=== PATIENT | male | born 1970 | race Two or more races ===

== ENCOUNTER 2022-02-16 12:20 | Outpatient (REF) | payer MEDICAID, SELFPAY ==
--- NOTE | ~2022-02-16 | XR_ITS ---
EXAMINATION: XR SHOULDER, RIGHT CLINICAL INFORMATION: Right shoulder pain. COMPARISON: None TECHNIQUE: AP external rotation, Grashey, scapular Y, and axillary views of the right shoulder. FINDINGS: There is loss of glenohumeral joint space with periarticular spurring and subchondral d cystic changes consistent with DJD. There is small calcification along the insertion of rotator cuff likely rotator cuff tendinitis. The soft tissues are normal. XR/XR shoulder RT min 2V IMPRESSION: Degenerative arthritic changes right shoulder joint. No visible acute fracture or dislocation seen. Likely calcific rotator cuff tendinitis. Consider MRI right shoulder for further evaluation.
== END 2022-02-16 12:21 | disposition home or self-care (01) ==
LOC: HO.XRAY 12:20
PROVIDERS: PCP Student in an Organized Health Care Education/Training Program; Visit Provider Student in an Organized Health Care Education/Training Program
DX: M25.511 Pain in right shoulder (principal)
CPT/HCPCS: 73030

== ENCOUNTER 2022-10-30 12:31 | Outpatient (REF) | payer MEDICAID, SELFPAY ==
[2022-10-30 13:34] LABS: Alanine Aminotransferase 29 U/L (0-40); Albumin Level 4.7 g/dL (3.5-5.0); Alkaline Phosphatase 70 U/L (39-117); Bilirubin Direct 0.2 mg/dL (0.0-0.5); Bilirubin Total 0.3 mg/dL (0.0-1.0); Lipase 19 U/L (8-78)
[2022-10-30 13:45] LABS: TSH reflex Free T4 4.18 uIU/mL (0.32-4.0)
[2022-10-30 13:57] LABS: HBS Num1 5.74 mIU/mL (0-7.99); HBc Num1 7.82 S/CO (0.00-0.79); HBsAGNum1 0.26 S/CO (0.00-0.99); Hepatitis B Surface Antigen Negative (Negative); ~HepC Num1 12.04 S/CO (0.00-0.79); ~Hepatitis B Surface Antibody NONREACTIVE (Nonreactive); ~Hepatitis C Antibody Reactive (Nonreactive)
[2022-10-30 14:38] LABS: Aspartate Amino Transferase 20 U/L (5-37); Free T4 (Free Thyroxine) 1.04 ng/dL (0.71-1.85)
[2022-10-30 15:38] LABS: Vitamin B12 401 pg/mL (200-900)
[2022-10-30 15:39] LABS: Folate 14.9 ng/mL (> or = 4.0)
[2022-10-31 09:23] LABS: Hepatitis A Antibody IgM 0.13 Index (0-0.79); ~Hepatitis A Antibody IgM Nonreactive (Nonreactive)
[2022-10-31 09:56] LABS: HBc Num3 8.33 S/CO
[2022-10-31 09:57] LABS: Hepatitis B Core Antibody Reactive (Nonreactive)
[2022-11-01 13:58] LABS: Transglutaminase Ab IgG <1.0 U/mL; Transglutaminase IgA <1.0 U/mL
[2022-11-02 08:58] LABS: Hepatitis B Core Antibody IgM NON-REACTIVE (NON-REACTIVE)
[2022-11-02 14:49] LABS: HCV Log PCR <1.18 NOT DETECTED Log IU/mL (NOT DETECTED); HepC Viral Load <15 NOT DETECTED IU/mL (NOT DETECTED)
[2022-11-05 14:33] LABS: Vitamin D 25-OH, D2 <4 ng/mL; Vitamin D 25-OH, D3 31 ng/mL; Vitamin D 25-OH, Total 31 ng/mL (30-100)
== END 2022-10-30 12:32 | disposition home or self-care (01) ==
LOC: HO.LAB 12:31
PROVIDERS: PCP Student in an Organized Health Care Education/Training Program; Visit Provider Nurse Practitioner Family
DX: R10.9 Unspecified abdominal pain (principal); K59.00 Constipation, unspecified; R19.7 Diarrhea, unspecified; R79.89 Other specified abnormal findings of blood chemistry; E55.9 Vitamin D deficiency, unspecified; Z86.19 Personal history of other infectious and parasitic diseases
CPT/HCPCS: 36415; 80076; 82306; 82607; 82746; 83690; 84439; 84443; 86364; 86704; 86705; 86706; 86709; 86803; 87340; 87522; 99212

== ENCOUNTER 2022-11-12 12:12 | Outpatient (REF) | payer MEDICAID, SELFPAY | END 2022-11-12 12:13 | disposition home or self-care (01) | LOC: HO.LNP 12:12 | PROVIDERS: Visit Provider Nurse Practitioner Family | DX: Z13.89 Encounter for screening for other disorder (principal) ==

== ENCOUNTER → 2023-04-19 15:24 | Outpatient (BNVA) | payer MEDICAID, SELFPAY | PROVIDERS: PCP Student in an Organized Health Care Education/Training Program; Visit Provider Nurse Practitioner Family | DX: K58.1 Irritable bowel syndrome with constipation (principal); R14.0 Abdominal distension (gaseous) | CPT/HCPCS: 99212 ==

== ENCOUNTER 2023-06-28 06:01 | Outpatient (REF) | payer MEDICAID, SELFPAY ==
--- NOTE | ~2023-06-28 | XR_ITS ---
EXAMINATION: XR SHOULDER, RIGHT CLINICAL INFORMATION: Pain. COMPARISON: Radiographs dated 02/16/2022. TECHNIQUE: AP external rotation, Grashey, scapular Y, and axillary views of the right shoulder. FINDINGS: Bony alignment and mineralization are normal. The glenohumeral joint is intact. There is moderate osteoarthritic change of the glenohumeral joint, with joint space narrowing and peripheral osteophyte formation. The acromioclavicular and coracoid clavicular intervals are normal. No fracture or dislocation is seen. There is mild narrowing of the rotator cuff interval, and there is mild cortical irregularity of the greater tuberosity of the proximal right humerus. There is no focal soft tissue calcification or foreign body. No right pneumothorax is seen. XR/XR shoulder RT min 2V IMPRESSION: 1. There is moderate osteoarthritic change of the right glenohumeral joint. 2. There are findings consistent with right rotator cuff impingement, without sophy calcific tendinitis noted.
== END 2023-06-28 06:02 | disposition home or self-care (01) ==
LOC: HO.HOSX 06:01
PROVIDERS: Visit Provider Physician Assistant
DX: M19.011 Primary osteoarthritis, right shoulder (principal)
CPT/HCPCS: 73030; 99203

== ENCOUNTER 2023-06-28 10:44 | Outpatient (AMB) | payer MEDICAID, SELFPAY ==
--- NOTE | 2023-06-28 11:03 | A.OFFVIS_ITS ---
Intake Vital Signs 06/28/23 11:06 Height 5 ft 7 in Weight 176 lb BMI 27.6 Handedness Right Intake Visit Reasons: New PT-Right shoulder pain Intake Note: Bob is a 52 year old right hand dominant male who presents today as a new patient for a evaluation for right shoulder pain. Hx of 2 injuries to his shoulder about 4-6 years ago. Hx of injections with mild relief. Hx of PT with mild pain. Patient reports ongoing pain for many years and it has gotten worse. He states that his ROM is limited. Allergies azithromycin Allergy (Unknown, Verified 06/28/23 11:06) Unknown morphine [MORPHINE] Allergy (Unknown, Verified 06/28/23 11:06) DIFFICULTY BREATHING HPI New PT-Right shoulder pain HPI Details 52-year-old right hand dominant male who presents in the office today, as a new patient, for an evaluation of right shoulder pain. The patient reports he has 2 prior injuries to his right shoulder about 4-6 years ago. He states he pain has been chronic since the injury and has increased with time. He claims his ROM is limited. Patient has a history of cortisone injections with mild relief. An ultrasound was not used. Patient has a history of physical therapy which was for a different injury with mild pain. [facility] Surgical History Hx of hernia repair Family History Mother Diabetes HTN (hypertension) Brother Cancer of blood vessel Social History (Updated 06/28/23 @ 11:06 by Jordana Avina) Household Members: Other Alcohol intake: former Patient Tobacco Use Status: Current everyday Tobacco user Current occupational status: disabled Current occupation: right hand dominant Review of Systems Const All systems reviewed & are unremarkable except as noted in HPI and below Physical Exam Vital Signs: BMI result Body Mass Index 27.6 Const General: cooperative and no acute distress Orientation/consciousness: patient oriented x3 Resp Effort & Inspection: normal respiratory effort and able to speak in complete sentences Cardio Peripheral pulses: Peripheral pulses 2+ throughout Skin General skin exam: no rashes or lesions noted Neuro General: patient oriented x3 Extrem Other: Right shoulder: Forward flexion and abduction to 90 degrees. Able to reach T12. Pain with cross-body reach. Unable to adequately assess empty can and drop arm due to ROM limitations. NVI. Assessment & Plan Assessment & Plan (1) Osteoarthritis of right glenohumeral joint: Code(s): M19.011 - Primary osteoarthritis, right shoulder Plan Mr. Acosta is a 52-year-old right hand dominant male who presents in the office today, as a new patient, for an evaluation of right shoulder pain. The patient reports he has 2 prior injuries to his right shoulder about 4-6 years ago. He states he pain has been chronic since the injury and has increased with time. He claims his ROM is limited. Patient has a history of cortisone injections with mild relief. An ultrasound was not used. Patient has a history of physical therapy which was for a different injury with mild pain. I discussed the role of a cortisone injection under ultrasound guidance, which a referral was placed today. I will place a prescription for a specialty pharmacy topical cream. I also discussed with the patient in the future he might be a candidate for a right total shoulder arthroplasty. I will also place a referral for formal physical therapy to work on ROM and strengthening of the right shoulder. Follow up will be PRN, or sooner if needed. X-rays of the right shoulder which were obtained while in the office today and were reviewed by me, Clare Peterson PA-C, revealed no evidence of acute fractures or dislocation. Right shoulder glenohumeral joint osteoarthritis. Orders: Orders XR shoulder RT min 2V Today M25.519 - Pain in unspecified shoulder FL arthrogram shoulder RT Today M19.011 - Primary osteoarthritis, right shoulder Patient Instructions: Scribed for Clare Peterson PA-C by Letty Sims senior medical transcriptionist, on 06/28/2023 at 11:01 am, EST. Your attestation Coding Level of Care Code New Pt Level 3 (21500) Diagnoses Osteoarthritis of right glenohumeral joint M19.011
[2023-06-28 11:06] VITALS: BMI 27.6
== END 2023-06-28 11:20 | disposition home or self-care (01) ==
PROVIDERS: PCP Student in an Organized Health Care Education/Training Program; Visit Provider Physician Assistant
DX: M19.011 Primary osteoarthritis, right shoulder (principal)
CPT/HCPCS: 99203

== ENCOUNTER 2023-11-01 11:35 | Outpatient (REF) | payer MEDICAID, SELFPAY ==
[2023-11-01 13:53] LABS: MANUAL DIFF FLAG NO
[2023-11-01 14:00] LABS: Basophils Absolute Auto 0.1 X10*3/uL (0.0-0.2); Basophils Percent Auto 1.2 % (0-2); Eosinophils Absolute Auto 0.3 X10*3/uL (0.0-0.4); Eosinophils Percent Auto 3.7 % (0-4); Hematocrit 48.1 % (42.0-52.0); Hemoglobin 15.9 g/dl (14.0-18.0); Imm Gran Abs Auto 0.02 X10*3/uL (0.00-0.03); Imm Gran Pct Auto 0.3 % (0.0-0.4); Lymphocytes Percent Auto 41.8 % (20-40); Mean Corpuscular HGB Conc 33.1 g/dl (31.0-36.0); Mean Corpuscular Volume 87.6 fL (80.0-98.0); Mean Platelet Volume 10.7 fL (9.4-12.4); Monocytes Absolute Auto 0.5 X10*3/uL (0.1-1.2); Monocytes Percent Auto 6.9 % (2-11); Neutrophils Absolute Auto 3.4 x10*3/uL (2.0-8.3); Neutrophils Percent Auto 46.1 % (45-73); Platelet Count 199 X10*3/uL (160-400); Red Blood Count 5.49 X10*6/uL (4.60-5.80); Red Cell Distribution Width 13.2 % (11.0-16.0); White Blood Count 7.3 X10*3/uL (4.8-10.8)
[2023-11-01 14:28] LABS: Alanine Aminotransferase 16 U/L (0-40); Albumin Level 4.6 g/dL (3.5-5.0); Alkaline Phosphatase 73 U/L (39-117); Anion Gap 12 (12-20); Aspartate Amino Transferase 19 U/L (5-37); Bilirubin Total 0.3 mg/dL (0.0-1.0); Blood Urea Nitrogen 12 mg/dL (9-16); Calcium 9.7 mg/dL (8.4-10.2); Carbon Dioxide 27 mmol/L (22-29); Chloride 106 mmol/L (96-108); Estimated Glomerular Filt Rate > 60; Glucose Random 113 mg/dL (60-115); Potassium 4.1 mmol/L (3.3-5.1); Sodium 141 mmol/L (135-145)
[2023-11-04 07:38] LABS: Absolute CD3 Count 2562 cells/uL (840-3060); Absolute CD4 Count 808 cells/uL (490-1740); Absolute CD8 Count 1806 cells/uL (180-1170); Absolute Lymphocytes 3296 cells/uL (850-3900); CD4 CD8 Ratio 0.45 (0.86-5.00); Percent CD3 Cells 78 % (57-85); Percent CD4 Cells 25 % (30-61); Percent CD8 Cells 55 % (12-42)
[2023-11-05 12:08] LABS: HIV RNA PCR Qn Copies 155 copies/mL (NOT DETECTED); HIV RNA PCR Qn Log Copies 2.19 (NOT DETECTED)
== END 2023-11-01 11:36 | disposition home or self-care (01) ==
LOC: HO.HHCL 11:35
PROVIDERS: Visit Provider Internal Medicine
DX: B20 Human immunodeficiency virus [HIV] disease (principal)
CPT/HCPCS: 36415; 80053; 85025; 86359; 86360; 87536

== ENCOUNTER 2024-01-23 01:11 | Emergency (ER) | payer MEDICAID, SELFPAY ==
--- NOTE | 2024-01-23 | ECG_ITS ---
Test Reason : INTERMITTENT CHEST PAIN Blood Pressure : / mmHG Vent. Rate : 054 BPM Atrial Rate : 054 BPM P-R Int : 156 ms QRS Dur : 092 ms QT Int : 406 ms P-R-T Axes : 051 031 037 degrees QTc Int : 385 ms Baseline wander Sinus bradycardia Otherwise normal ECG When compared with ECG of 09-OCT-2019 18:14, No significant change was found Referred By: Generic ED Physician Electronically Signed By:MARYSOL CASILLAS MD
--- NOTE | ~2024-01-23 | XR_ITS ---
EXAMINATION: XR CHEST CLINICAL INFORMATION: Chest pain. COMPARISON: 10/09/2019. TECHNIQUE: Frontal view of the chest was obtained. FINDINGS: The cardiomediastinal silhouette is normal. There is no focal lung consolidation or pleural effusion. There is bilateral glenohumeral degenerative change. The soft tissues are unremarkable. XR/XR chest 1V IMPRESSION: Unremarkable examination.
[2024-01-23 01:19] VITALS: BP 123/85; BP 130/92; PULSE 55; PULSE 60; RESP 16; TEMP 36.6; O2SAT 97; O2SAT 99; BMI 28.2
[2024-01-23 02:03] LABS: Basophils Absolute Auto 0.1 X10*3/uL (0.0-0.2); Basophils Percent Auto 1.1 % (0-2); Eosinophils Absolute Auto 0.4 X10*3/uL (0.0-0.4); Eosinophils Percent Auto 5.1 % (0-4); Hematocrit 44.9 % (42.0-52.0); Hemoglobin 15.3 g/dl (14.0-18.0); Lymphocytes Absolute Auto 3.5 X10*3/uL (1.2-4.9); Lymphocytes Percent Auto 44.1 % (20-40); MANUAL DIFF FLAG NO; Mean Corpuscular HGB Conc 34.1 g/dl (31.0-36.0); Mean Corpuscular Hemoglobin 29.3 pg (27.0-33.0); Monocytes Absolute Auto 0.9 X10*3/uL (0.1-1.2); Monocytes Percent Auto 10.9 % (2-11); Neutrophils Percent Auto 38.8 % (45-73); Platelet Count 168 X10*3/uL (160-400); Red Blood Count 5.22 X10*6/uL (4.60-5.80); Red Cell Distribution Width 12.9 % (11.0-16.0); White Blood Count 7.8 X10*3/uL (4.8-10.8)
[2024-01-23 02:32] LABS: Alanine Aminotransferase 16 U/L (0-40); Albumin Level 4.2 g/dL (3.5-5.0); Alkaline Phosphatase 67 U/L (39-117); Anion Gap 11 (12-20); Aspartate Amino Transferase 16 U/L (5-37); Bilirubin Total 0.2 mg/dL (0.0-1.0); Blood Urea Nitrogen 14 mg/dL (9-16); Calcium 9.2 mg/dL (8.4-10.2); Carbon Dioxide 27 mmol/L (22-29); Chloride 107 mmol/L (96-108); Creatinine Clr Calc Pharmacy 82.4; Estimated Glomerular Filt Rate > 60; Glucose Fasting 103 mg/dL (60-99); Lipase 22 U/L (8-78); Potassium 3.9 mmol/L (3.3-5.1); Sodium 141 mmol/L (135-145); Total Protein 7.3 g/dL (6.5-8.0)
[2024-01-23 02:41] LABS: Troponin-I High Sensitivity < 2.7 ng/L (<3.5-35.0)
[2024-01-23 02:51] VITALS: BP 110/66; PULSE 60; RESP 14; TEMP 36.6; O2SAT 94
--- NOTE | 2024-01-23 03:38 | PC.NURSE ---
PT HR dipping into lows 40's while asleep. BP WNL. Dr. Naranjo aware. NO further orders @ this time.
--- NOTE | 2024-01-23 04:39 | ED_ITS ---
HPI - Abdominal Pain General Chief Complaint: Abdominal Pain Stated Complaint: ABDOMINAL PAIN/ NAUSEA VOMITTING Time Seen by Provider: 01/23/24 04:29 Source: patient Mode of arrival: ambulatory Limitations: no limitations History of Present Illness HPI narrative: Patient comes to the emergency room complaining of several days of abdominal distension, bloating. Patient states that for couple of years, he has been complaining of the abdominal distention, has been seen by Gastroenterology. Patient missed 1 appointment and never had follow-up. Patient states that he has intermittent diarrhea and constipation frequently. Denies any vomiting. Also, patient complaining today that he woke up from a nightmare complaining of chest pain, anxious my NSAIDs to come to emergency room Related Data Home Medications Medication Instructions Recorded Confirmed albuterol sulfate 90 mcg/actuation 2 puff inhalation Q4H PRN 10/30/22 aerosol inhaler (ProAir HFA) blood pressure test kit-large #1 ea 10/30/22 clonazepam 1 mg tablet 1 mg PO BID 10/30/22 emtricitabine 200 mg-tenofovir 1 tab PO DAILY 10/30/22 alafenamide fumarate 25 mg tablet (Descovy) escitalopram oxalate 20 mg tablet 20 mg PO QAM 10/30/22 nicotine 14 mg/24 hr daily 1 patch topical DAILY 10/30/22 transdermal patch zolpidem 10 mg tablet 10 mg PO BEDTIME PRN 10/30/22 Previous Rx's Medication Instructions Recorded sennosides 8.6 mg tablet (Natural 8.6 mg PO BEDTIME constipation #90 10/30/22 Senna Laxative) tabs polyethylene glycol 3350 17 17 g PO DAILY #510 grams 04/26/23 gram/dose oral powder (Miralax) dicyclomine 20 mg tablet 20 mg PO QID 30 days #120 tabs 01/23/24 simethicone 125 mg capsule 250 mg (2 x 125 mg) PO .T.i.d. PRN 01/23/24 abdominal distention #20 caps Allergies Allergy/AdvReac Type Severity Reaction Status Date / Time azithromycin Allergy Unknown Unknown Verified 06/28/23 11:06 morphine [MORPHINE] Allergy Unknown DIFFICULTY Verified 06/28/23 11:06 BREATHING Review of Systems Review of Systems Constitutional : No Weight loss, No Fever, No Chills, No Night Sweats, No Fatigue, No Malaise ENT/Mouth : No Hearing loss, No Ear Pain, No Nasal Congestion, No Sinus Pain, No Hoarseness, No sore throat, No Rhinorrhea, No Swallowing Difficulty Eyes: No Eye Pain, No Swelling, No Redness, No Foreign Body, No Discharge, No Vision Changes Cardiovascular : No Chest Pain, No SOB, No Dyspnea on Exertion, No Orthopnea, No Edema, No Palpitations Respiratory : No Cough, No Sputum, No Wheezing, No Smoke Exposure, No Dyspnea Gastrointestinal : Chronic abdominal discomfort, bloating, intermittent diarrhea and constipation Genitourinary : no irregular bleeding, No Dysuria, No Urinary Frequency, No Hematuria, No Urinary Incontinence, No Urgency, No Flank Pain, No Urinary Flow Changes, No Hesitancy Musculoskeletal : No joint pain, No Myalgias, No Joint Swelling Skin : No Skin Lesions, No rash Neuro : No Weakness, No Numbness, No Paresthesias, No Loss of Consciousness, No Dizziness, No Headache Psych : Had an dimer, panic attack/anxiety prior to arrival self-resolved, No Depression, No SI/HI/AH/VH, No Social Issues, Heme/Lymph: No Bruising, No Bleeding,No Lymphadenopathy Endocrine : No Polyuria, No Polydipsia, No Temperature Intolerance PMFSH Past Medical History Medical History (Updated 01/23/24 @ 04:46 by Aishwarya Naranjo MD) HIV (human immunodeficiency virus infection) Surgical History Hx of hernia repair Family History Family History Mother Diabetes HTN (hypertension) Brother Cancer of blood vessel Social History Social History (Updated 06/28/23 @ 11:06 by Jordana Avina) Household Members: Other Alcohol intake: former Patient Tobacco Use Status: Current everyday Tobacco user Smoked in Last 30 Days: Yes Use of substances other than those prescribed or required for medical reasons: No Advance Directives: No Advance Directives Information Provided: Yes Current occupational status: disabled Current occupation: right hand dominant Physical Exam ED Vital Signs: Vital Signs - 24 hr 01/23/24 01:19 01/23/24 02:51 Temperature 98 F 97.9 F Pulse Rate 55 60 Respiratory Rate 16 14 Blood Pressure 130/92 H 110/66 Pulse Oximetry 97 94 Oxygen Delivery Method Room Air Room Air BMI result Body Mass Index 28.2 Const Other: Appearance: Alert. Oriented X3. No acute distress. Eyes: Pupils equal, round and reactive to light. ENT: Pharynx normal. Neck: Normal inspection. Neck supple. No lymph nodes noted. No crepitus CVS: Normal heart rate and rhythm. Pulses normal. Normal S1 and S2 Respiratory: No respiratory distress. Breath sounds normal. No Wheezing. No rales Abdomen: Soft and nontender. No rigidity. Mother distention. No rebound or guarding Skin: Skin warm and dry. Normal skin color. Normal skin turgor. Extremities: No lower extremity edema. No Lacerations. No Rash Neuro: Oriented X 3. No motor deficit. No sensory deficit. Moving all extremities. No slurred speech. CN 2 through 12 grossly intact Psych: calm, cooperative, normal affect Medical Decision Making Medical Decision Making [facility] Narrative: -my interpretation of labs: Hematology and chemistry do not show any acute abnormalities. trop neg. -I discussed with the patient that he likely has IBS. Patient will follow-up with Gastroenterology. -patient woke up with anxiety/panic attack. Differential Diagnosis Differential Diagnoses: The differential diagnosis associated with the presentation includes (As discussed above) Lab Data [facility] Lab Attestation statement: I reviewed the patient's lab results. 01/23/24 01:58 01/23/24 02:10 Labs: Lab Results 01/23/24 01/23/24 Range/Units 01:58 02:10 WBC 7.8 (4.8-10.8) X10*3/uL RBC 5.22 (4.60-5.80) X10*6/uL Hgb 15.3 (14.0-18.0) g/dl Hct 44.9 (42.0-52.0) % MCV 86.0 (80.0-98.0) fL MCH 29.3 (27.0-33.0) pg MCHC 34.1 (31.0-36.0) g/dl RDW 12.9 (11.0-16.0) % Plt Count 168 (160-400) X10*3/uL MPV 10.0 (9.4-12.4) fL Immature Gran % (Auto) 0.0 (0.0-0.4) % Neut % (Auto) 38.8 L (45-73) % Lymph % (Auto) 44.1 H (20-40) % [place] % (Auto) 10.9 (2-11) % Eos % (Auto) 5.1 H (0-4) % Baso % (Auto) 1.1 (0-2) % Lymph # (Auto) 3.5 (1.2-4.9) X10*3/uL [place] # (Auto) 0.9 (0.1-1.2) X10*3/uL Eos # (Auto) 0.4 (0.0-0.4) X10*3/uL Baso # (Auto) 0.1 (0.0-0.2) X10*3/uL Abs Immat Gran (auto) 0.00 (0.00-0.03) X10*3/uL Absolute Neuts (auto) 3.0 (2.0-8.3) x10*3/uL Absolute Nucleated RBC 0.000 (0.0-0.012) X10*3/uL Nucleated RBC % (auto) 0.0 (0.0-0.2) /100WBC Sodium 141 (135-145) mmol/L Potassium 3.9 (3.3-5.1) mmol/L Chloride 107 (96-108) mmol/L Carbon Dioxide 27 (22-29) mmol/L Anion Gap 11 L (12-20) BUN 14 (9-16) mg/dL Creatinine 1.06 (0.5-1.4) mg/dL Estim Creat Clear Calc 82.4 Estimated GFR > 60 Fasting Glucose 103 H (60-99) mg/dL Calcium 9.2 (8.4-10.2) mg/dL Total Bilirubin 0.2 (0.0-1.0) mg/dL AST 16 (5-37) U/L ALT 16 (0-40) U/L Alkaline Phosphatase 67 (39-117) U/L Troponin I High Sens < 2.7 (<3.5-35.0) ng/L Total Protein 7.3 (6.5-8.0) g/dL Albumin 4.2 (3.5-5.0) g/dL Lipase 22 (8-78) U/L Independent Interpretation I performed an independent interpretation of an: EKG (My interpretation of EKG: Normal sinus rhythm, heart rate 54, no ST segment depression or elevation, no T-wave inversion, QTC 385) and Plain X-Ray Interpretation: My interpretation of chest x-ray: No infiltrates Radiology Impression Discussion of test interpretation with radiology: I have reviewed the radiologist's reading. Radiologist Impression: The cardiomediastinal silhouette is normal. There is no focal lung consolidation or pleural effusion. There is bilateral glenohumeral degenerative change. The soft tissues are unremarkable. XR/XR chest 1V IMPRESSION: Unremarkable examination. Discharge Plan Discharge Clinical Impression: Irritable bowel syndrome (IBS), Bloating Patient Disposition: Home, Self-Care Instructions: Irritable Bowel Syndrome (ED), Gas and Bloating (ED) Additional Instructions: Please follow-up with your primary care physician tomorrow. If you have any worsening or new symptoms, please return to the emergency room or call 911 Prescriptions: New dicyclomine 20 mg tablet 20 mg PO QID 30 Days Qty: 120 0RF simethicone 125 mg capsule 250 mg PO .T.i.d. PRN (Reason: abdominal distention) Qty: 20 0RF No Action polyethylene glycol 3350 [Miralax] 17 gram/dose powder 17 g PO DAILY Qty: 510 2RF zolpidem 10 mg tablet 10 mg PO BEDTIME PRN clonazepam 1 mg tablet 1 mg PO BID nicotine 14 mg/24 hr patch 24 hour 1 patch topical DAILY escitalopram oxalate 20 mg tablet 20 mg PO QAM Descovy 200-25 mg tablet 1 tab PO DAILY albuterol sulfate [ProAir HFA] 90 mcg/actuation HFA aerosol inhaler 2 puff inhalation Q4H PRN (DME) blood pressure test kit-large Kit See Rx Instructions .ROUTE .MEDSUPPLY Qty: 1 Rx Instructions: As directed sennosides [Natural Senna Laxative] 8.6 mg tablet 8.6 mg PO BEDTIME Qty: 90 3RF Referrals: Rebekah Tracy, PROFESSOR OF CHEMICAL ENGINEERING-BC [Nurse Practitioner] - 01/27/24
== END 2024-01-23 05:05 | disposition home or self-care (01) ==
PROVIDERS: Emergency Provider Emergency Medicine; PCP Student in an Organized Health Care Education/Training Program
DX: K58.9 Irritable bowel syndrome, unspecified (principal); R14.0 Abdominal distension (gaseous); R11.2 Nausea with vomiting, unspecified; R07.89 Other chest pain; F41.9 Anxiety disorder, unspecified; Z79.899 Other long term (current) drug therapy
CPT/HCPCS: 36415; 71045; 80053; 83690; 84484; 85025; 93005; 99283; 99285

== ENCOUNTER → 2024-01-23 01:40 | Outpatient (BNV) | payer MEDICAID, SELFPAY | PROVIDERS: Emergency Provider Emergency Medicine; PCP Student in an Organized Health Care Education/Training Program; Visit Provider Internal Medicine Cardiovascular Disease | DX: R00.1 Bradycardia, unspecified (principal) | CPT/HCPCS: 93010 ==

== ENCOUNTER 2024-01-31 14:44 | Outpatient (REF) | payer MEDICAID, SELFPAY ==
--- NOTE | ~2024-01-31 | XR_ITS ---
EXAMINATION: XR SHOULDER, LEFT CLINICAL INFORMATION: Left shoulder pain x2 days. Denies injury. COMPARISON: None available. TECHNIQUE: AP external rotation, Grashey, scapular Y, and axillary views of the left shoulder. FINDINGS: There is loss of glenohumeral and AC joint space with inferior spurring. No visible acute fracture, dislocation or subluxation seen. The soft tissues are normal. XR/XR shoulder LT min 2V IMPRESSION: Degenerative arthritic changes left shoulder joint. No visible acute fracture or dislocation seen.
== END 2024-01-31 14:45 | disposition home or self-care (01) ==
LOC: HO.HHCX 14:44
PROVIDERS: Visit Provider Student in an Organized Health Care Education/Training Program
DX: M25.512 Pain in left shoulder (principal)
CPT/HCPCS: 73030

== ENCOUNTER 2024-01-31 15:23 | Outpatient (REF) | payer MEDICAID, SELFPAY ==
[2024-01-31 16:04] LABS: MANUAL DIFF FLAG NO
[2024-01-31 16:35] LABS: Basophils Absolute Auto 0.1 X10*3/uL (0.0-0.2); Basophils Percent Auto 1.5 % (0-2); Eosinophils Absolute Auto 0.2 X10*3/uL (0.0-0.4); Eosinophils Percent Auto 2.9 % (0-4); Hemoglobin 16.2 g/dl (14.0-18.0); Imm Gran Abs Auto 0.02 X10*3/uL (0.00-0.03); Imm Gran Pct Auto 0.3 % (0.0-0.4); Lymphocytes Absolute Auto 3.1 X10*3/uL (1.2-4.9); Lymphocytes Percent Auto 43.4 % (20-40); Mean Corpuscular HGB Conc 33.1 g/dl (31.0-36.0); Mean Corpuscular Hemoglobin 29.1 pg (27.0-33.0); Mean Corpuscular Volume 88.1 fL (80.0-98.0); Mean Platelet Volume 10.3 fL (9.4-12.4); Monocytes Absolute Auto 0.5 X10*3/uL (0.1-1.2); Monocytes Percent Auto 7.3 % (2-11); Neutrophils Absolute Auto 3.2 x10*3/uL (2.0-8.3); Neutrophils Percent Auto 44.6 % (45-73); Platelet Count 201 X10*3/uL (160-400); Red Blood Count 5.56 X10*6/uL (4.60-5.80); Red Cell Distribution Width 13.2 % (11.0-16.0); White Blood Count 7.2 X10*3/uL (4.8-10.8)
[2024-01-31 18:01] LABS: Alanine Aminotransferase 16 U/L (0-40); Albumin Level 4.6 g/dL (3.5-5.0); Alkaline Phosphatase 63 U/L (39-117); Anion Gap 12 (12-20); Aspartate Amino Transferase 19 U/L (5-37); Bilirubin Total 0.6 mg/dL (0.0-1.0); Blood Urea Nitrogen 10 mg/dL (9-16); Calcium 9.7 mg/dL (8.4-10.2); Carbon Dioxide 28 mmol/L (22-29); Chloride 104 mmol/L (96-108); Estimated Glomerular Filt Rate > 60; Glucose Random 113 mg/dL (60-115); Potassium 4.4 mmol/L (3.3-5.1); Sodium 140 mmol/L (135-145)
[2024-02-03 11:14] LABS: Absolute CD3 Count 2664 cells/uL (840-3060); Absolute CD4 Count 785 cells/uL (490-1740); Absolute CD8 Count 1910 cells/uL (180-1170); Absolute Lymphocytes 3531 cells/uL (850-3900); CD4 CD8 Ratio 0.41 (0.86-5.00); Percent CD3 Cells 75 % (57-85); Percent CD4 Cells 22 % (30-61); Percent CD8 Cells 54 % (12-42)
[2024-02-04 16:23] LABS: HIV RNA PCR Qn Copies NOT DETECTED copies/mL (NOT DETECTED); HIV RNA PCR Qn Log Copies NOT DETECTED (NOT DETECTED)
== END 2024-01-31 15:24 | disposition home or self-care (01) ==
LOC: HO.HHCL 15:23
PROVIDERS: Visit Provider Internal Medicine
DX: B20 Human immunodeficiency virus [HIV] disease (principal)
CPT/HCPCS: 36415; 80053; 85025; 86359; 86360; 87536

== ENCOUNTER 2024-07-21 12:10 | Outpatient (REF) | payer MEDICAID, SELFPAY ==
[2024-07-21 14:28] LABS: MANUAL DIFF FLAG NO
[2024-07-21 14:35] LABS: Basophils Absolute Auto 0.1 X10*3/uL (0.0-0.2); Eosinophils Absolute Auto 0.3 X10*3/uL (0.0-0.4); Eosinophils Percent Auto 4.2 % (0-4); Hematocrit 49.3 % (42.0-52.0); Hemoglobin 16.5 g/dl (14.0-18.0); Imm Gran Abs Auto 0.01 X10*3/uL (0.00-0.03); Imm Gran Pct Auto 0.1 % (0.0-0.4); Lymphocytes Absolute Auto 3.9 X10*3/uL (1.2-4.9); Lymphocytes Percent Auto 49.7 % (20-40); Mean Corpuscular HGB Conc 33.5 g/dl (31.0-36.0); Mean Corpuscular Hemoglobin 29.4 pg (27.0-33.0); Mean Corpuscular Volume 87.7 fL (80.0-98.0); Mean Platelet Volume 10.6 fL (9.4-12.4); Monocytes Absolute Auto 0.7 X10*3/uL (0.1-1.2); Monocytes Percent Auto 8.4 % (2-11); Neutrophils Absolute Auto 2.9 x10*3/uL (2.0-8.3); Neutrophils Percent Auto 36.6 % (45-73); Platelet Count 207 X10*3/uL (160-400); Red Blood Count 5.62 X10*6/uL (4.60-5.80); Red Cell Distribution Width 13.2 % (11.0-16.0); White Blood Count 7.8 X10*3/uL (4.8-10.8)
[2024-07-21 14:42] LABS: Estimated Average Glucose 111 mg/dL; Hemoglobin A1C 150.5102 umol/L; Hemoglobin A1c % 5.5 % (<6.0)
[2024-07-21 14:47] LABS: Anion Gap 13 (12-20); Blood Urea Nitrogen 11 mg/dL (9-16); Calcium 10.1 mg/dL (8.4-10.2); Carbon Dioxide 27 mmol/L (22-29); Chloride 106 mmol/L (96-108); Estimated Glomerular Filt Rate > 60; Glucose Random 95 mg/dL (60-115); Potassium 4.2 mmol/L (3.3-5.1); Sodium 142 mmol/L (135-145)
[2024-07-21 15:04] LABS: Prostate Specific Antigen 0.69 ng/mL (<0.05-4.0)
[2024-07-21 15:05] LABS: TSH reflex Free T4 3.91 uIU/mL (0.32-4.0)
== END 2024-07-21 12:11 | disposition home or self-care (01) ==
LOC: HO.CHCLDS 12:10
PROVIDERS: Visit Provider Emergency Medicine
DX: Z12.5 Encounter for screening for malignant neoplasm of prostate (principal); R53.83 Other fatigue
CPT/HCPCS: 36415; 80048; 83036; 84153; 84443; 85025

== ENCOUNTER 2024-07-31 11:18 | Outpatient (REF) | payer MEDICAID, SELFPAY ==
--- NOTE | 2024-07-31 | EMG_ITS ---
Chief complaint: Chronic intermittent leg numbness, becoming more constant on right big toe for the last 2 weeks Reason for referral: Evaluate for neuropathy Referred by: Dr. Soares Procedure done: Bilateral lower extremity NCS/EMG Referred for testing right lower extremity, but testing of left side done also for comparison. Precautions and/or limitations: None The limb temperature was monitored continuously and remained between 32-36 degrees C during the performance of the NCS. Nerve Conduction Studies Anti Sensory Summary Table ?Stim Site NR Onset (ms) Norm Onset (ms) Peak (ms) Norm Peak (ms) O-P Amp (?V) Norm O-P Amp Site1 Site2 Delta-0 (ms) Dist (cm) Twan (m/s) Norm Twan (m/s) Left Sural Anti Sensory (Lat Mall) Calf NR <4.0 >5.0 Calf Lat Mall 14.0 Right Sural Anti Sensory (Lat Mall) Calf NR <4.0 >5.0 Calf Lat Mall 14.0 Motor Summary Table ?Stim Site NR Onset (ms) Norm Onset (ms) O-P Amp (mV) Norm O-P Amp iAmp (mV) Amp (1st) (%) Site1 Site2 Delta-0 (ms) Dist (cm) Twan (m/s) Norm Twan (m/s) Right Peroneal Motor (Ext Dig Brev) Ankle ? 4.8 <4.0 5.1 >2.5 6.4 100.0 Ankle Ext Dig Brev 4.8 0.0 B Fib ? 14.0 3.8 4.6 74.5 B Fib Ankle 9.2 34.0 37 >40 Poplt ? 15.1 3.7 4.5 72.5 Poplt B Fib 1.1 5.0 45 >40 Left Tibial Motor (Abd Wolfe Brev) Ankle ? 4.6 <5 7.2 >2.5 10.4 100.0 Ankle Abd Wolfe Brev 4.6 0.0 Knee ? 15.8 4.6 6.6 63.9 Knee Ankle 11.2 39.0 35 >40 Right Tibial Motor (Abd Wolfe Brev) Ankle ? 4.2 <5 6.1 >2.5 9.3 100.0 Ankle Abd Wolfe Brev 4.2 0.0 Knee ? 14.4 1.4 1.5 23.0 Knee Ankle 10.2 42.5 42 >40 EMG ?Side Muscle Nerve Root Ins Act Fibs Psw Amp Dur Poly Recrt Int Pat Comment Right AbdHallucis MedPlantar S1-2 Incr 1+ 1+ Nml Nml 0 Nml Complete Right AntTibialis Dp Br Peron L4-5 Nml Nml Nml Nml Nml 0 Nml Complete Right PostTibialis Tibial L5, S1 Nml Nml Nml Nml Nml 0 Nml Complete Right MedGastroc Tibial S1-2 Nml Nml Nml Nml Nml 0 Nml Complete Right VastusMed Femoral L2-4 Nml Nml Nml Nml Nml 0 Nml Complete Left AbdHallucis MedPlantar S1-2 Incr 1+ 1+ Nml Nml 0 Nml Complete Left AntTibialis Dp Br Peron L4-5 Nml Nml Nml Nml Nml 0 Nml Complete Left PostTibialis Tibial L5, S1 Nml Nml Nml Nml Nml 0 Nml Complete Left MedGastroc Tibial S1-2 Nml Nml Nml Nml Nml 0 Nml Complete Left VastusMed Femoral L2-4 Nml Nml Nml Nml Nml 0 Nml Complete Paraspinal EMG ?Side Muscle Nerve Root Ins Act Fibs Psw Comment Right Lumbar Upper Rami Nml Nml Nml Right Lumbar Mid Rami Nml Nml Nml Right Lumbar Lower Rami Nml Nml Nml Left Lumbar Upper Rami Nml Nml Nml Left Lumbar Mid Rami Nml Nml Nml Left Lumbar Lower Rami Nml Nml Nml FINDINGS: Right peroneal nerve showed prolonged distal latency, normal amplitude and slow conduction velocity distally. Right tibial nerve showed normal distal latency, small proximal amplitude with temporal dispersion and normal conduction velocity. Left tibial nerve showed normal distal latency, normal amplitude and slow conduction velocity. Bilateral sural nerves absent response. Concentric needle EMG was performed in selected muscles of the bilateral lower extremity. Study revealed signs of electric abnormalities as shown in the table above. Bilateral AH showed increased insertional activity, PSWs and fibrillations. No denervation seen on lumbar paraspinals. IMPRESSION: 1. This is an abnormal study. 2. 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 3. There is no electrodiagnostic evidence for lumbar radiculopathy. CLINICAL COMMENT: Further clinical correlation recommended. Thank you for your kind referral. Petty Isabel MD, DANYELL Board Certified, [place] Board [employer] Physical [employer] and Rehabilitation (ABPMR) Board Certified, [place] Board of Electrodiagnostic Medicine (ABEM) CODIN 32599 x 2 MTDD
== END 2024-07-31 11:19 | disposition home or self-care (01) ==
LOC: HO.NEURO 11:18
PROVIDERS: PCP Student in an Organized Health Care Education/Training Program; Visit Provider Emergency Medicine
DX: R20.2 Paresthesia of skin (principal)
CPT/HCPCS: 95886; 95909

== ENCOUNTER → 2024-07-31 11:22 | Outpatient (BNV) | payer MEDICAID, SELFPAY | PROVIDERS: PCP Student in an Organized Health Care Education/Training Program; Visit Provider Physical Medicine & Rehabilitation | DX: R20.0 Anesthesia of skin (principal); G62.9 Polyneuropathy, unspecified; R20.2 Paresthesia of skin | CPT/HCPCS: 95886; 95909 ==

== ENCOUNTER 2024-08-08 13:38 | Emergency (ER) | payer MEDICAID, SELFPAY ==
--- NOTE | 2024-08-08 14:00 | ED_ITS ---
HPI - General Adult General Chief complaint: General Medical Stated complaint: headache, pain in lungs Source: patient and special agent fbi (all interactions with this patient were facilitated with an [facility] industrial engineering professor ) Mode of arrival: ambulatory Limitations: language barrier (all interactions with this patient were facilitated with an [facility] industrial engineering professor ) History of Present Illness ED Provider: Yamileth Stratton PA-C HPI narrative: Patient is a 53 year old assigned male at with a history of OA presenting to the emergency department today with multiple complaints. Patient states that he has been having numbness to 2 of his right toes for which he had muscle / nerve testing at [facility] and he is awaiting his results. Patient states that he had a headache that resolved 2 weeks ago but started again yesterday, now resolved. Patient states that he is also having back, neck, and lung pain with abdominal bloating. Patient denies any dizziness, lightheadedness, nausea, vomiting, fever, chills, blurry vision, double vision, loss of vision, chest pain, difficulty breathing, shortness of breath, night sweats, pain with urination, increased urinary frequency, increased urinary urgency, blood in his urine or stool, syncope or a near syncopal episode, recent trauma or falls, bowel incontinence, bladder incontinence, or any other complaints at this time. Related Data Home Medications ?Medication ?Instructions ?Recorded ?Confirmed albuterol sulfate 90 mcg/actuation 2 puff inhalation Q4H PRN 10/30/22 aerosol inhaler (ProAir HFA) blood pressure test kit-large #1 ea 10/30/22 clonazepam 1 mg tablet 1 mg PO BID 10/30/22 emtricitabine 200 mg-tenofovir 1 tab PO DAILY 10/30/22 alafenamide fumarate 25 mg tablet (Descovy) escitalopram oxalate 20 mg tablet 20 mg PO QAM 10/30/22 nicotine 14 mg/24 hr daily 1 patch topical DAILY 10/30/22 transdermal patch zolpidem 10 mg tablet 10 mg PO BEDTIME PRN 10/30/22 Previous Rx's ?Medication ?Instructions ?Recorded sennosides 8.6 mg tablet (Natural 8.6 mg PO BEDTIME constipation #90 10/30/22 Senna Laxative) tabs polyethylene glycol 3350 17 17 g PO DAILY #510 grams 04/26/23 gram/dose oral powder (Miralax) dicyclomine 20 mg tablet 20 mg PO QID 30 days #120 tabs 01/23/24 simethicone 125 mg capsule 250 mg (2 x 125 mg) PO .T.i.d. PRN 01/23/24 abdominal distention #20 caps Allergies Allergy/AdvReac Type Severity Reaction Status Date / Time azithromycin Allergy Unknown Unknown Verified 08/08/24 14:11 morphine [MORPHINE] Allergy Unknown DIFFICULTY Verified 08/08/24 14:11 BREATHING Review of Systems 2 Constitutional: Constitutional: Reports no additional constitutional complaints, Denies chills, Denies fever(s), Reports headache(s) (now resolved) and Denies night sweats Eyes: Eyes: Reports no additional eye complaints, Denies blurry vision, Denies change in vision, Denies diplopia, Denies eye discharge, Denies loss of vision and Denies eye pain ENT: Denies dizziness and Reports headache(s) (now resolved) Cardiovascular: Cardiovascular: Reports no additional cardiovascular complaints, Denies chest pain, Denies lightheadedness, Denies Loss of Consciousness and Denies dyspnea Respiratory: Respiratory: Reports no additional respiratory complaints and Denies dyspnea Gastrointestinal: Gastrointestinal: Reports no additional gastrointestinal complaints, Reports abdominal pain, Denies melena, Denies hematochezia, Denies change in bowel habits and Denies change in stool character Genitourinary: Genitourinary: Reports no additional male genitourinary complaints, Denies hematuria, Denies oliguria, Denies difficulty urinating, Denies dysuria, Denies urinary frequency, Denies urinary hesitancy, Denies urinary incontinence and Denies urinary urgency Musculoskeletal: Musculoskeletal: Reports no additional musculoskeletal complaints, Reports back pain, Reports numbness and Reports tingling Neurologic: Denies dizziness, Reports headache(s) (now resolved), Denies loss of vision, Reports numbness and Reports tingling Psychiatric: Psychiatric: Reports no additional psychiatric complaints Endocrine: Endocrine: Reports no additional endocrine complaints Hematologic/Lymphatic: Hematologic/Lymphatic: Reports no additional hematologic/lymphatic complaints Allergic/Immunologic: Allergic/Immunologic: Reports no additional allergic/immunologic complaints PMFSH Past Medical History Attestation statement: The following information was validated with the patient. Source: old records reviewed and nursing notes reviewed Medical History HIV (human immunodeficiency virus infection) Surgical History Hx of hernia repair Family History Family History Mother Diabetes HTN (hypertension) Brother Cancer of blood vessel Social History Social History Household Members: Other Alcohol intake: former Patient Tobacco Use Status: Current everyday Tobacco user Smoked in Last 30 Days: Yes Use of substances other than those prescribed or required for medical reasons: No Advance Directives: No Advance Directives Information Provided: No Current occupational status: disabled Current occupation: right hand dominant Physical Exam ED Vital Signs: Vital Signs - 24 hr 08/08/24 19:51 Temperature 97.9 F Pulse Rate 65 Respiratory Rate 18 Blood Pressure 119/71 Pulse Oximetry 98 Oxygen Delivery Method Room Air BMI result Body Mass Index 26.2 Const General: cooperative, no acute distress, alert and awake Nutritional Appearance: well nourished Orientation/consciousness: patient oriented x3 Limitations: no limitations HENMT Head: Yes normal to inspection and Yes atraumatic Ears: hearing grossly normal bilaterally and external ears normal General nose exam: Normal external nose present, no nasal discharge noted and no epistaxis Face and sinus: Yes normal facial exam, No abrasion and No laceration Mouth: Normal oral and palatal mucosa present, no drooling and no muffled voice Eyes General: appearance normal, both eyes and all related structures Periorbital: periorbital findings normal Eyelids: Yes eyelids normal Conjunctivae: conjunctivae normal Pupils: Equal, round and reactive pupils present EOM: EOMs intact bilaterally Neck Neck: Yes normal visual inspection, Yes full ROM and Yes no lymphadenopathy Chest Chest palpation & inspection: normal inspection of the chest Resp Effort & Inspection: normal respiratory effort and able to speak in complete sentences GI Inspection: Yes normal to inspection Neuro General: patient oriented x3 and moves all extremities Cranial nerves: Yes Equal, round and reactive pupils present Cognition (Neuro): normal cognition Extrem General: Yes normal to inspection, Yes full ROM and Yes capillary refill normal Psych Appearance: grossly normal Mental Status: mental status grossly normal Affect: normal affect Attitude: cooperative Thought process: Normal thought process present Thought content: Normal thought content present Insight: Good insight present (Psych) Course Course Course Narrative: RME performed by Yamileth Stratton PA-C. Patient is a 53 year old assigned male at presenting to the emergency department with multiple complaints. Patient states he has a lot of things wrong including nerve and circulation problems. Patient states that he would like to know his test results from an outside facility. Detailed physical exam and review of systems are deferred to the vmware engineer. Labs ordered. Patient placed back in the waiting room pending room availability and results. Medical Decision Making Medical Decision Making [facility] Narrative: Patient is a 53 year old assigned male at with a history of OA presenting to the emergency department today with multiple complaints. Patient's limited physical exam performed in triage was unremarkable. Patient's blood work was unremarkable. Patient left the department without completing treatment. Patient left the department before myself or any of the other emergency department clinicians could explain to or review with the patient; physical exam findings, test results, need or lack there of for additional testing, need or lack there of for a procedure to be performed, need or lack there of for hospital admission / transfer, need or lack there of for prescription medication, treatment options, or a treatment plan. Differential Diagnosis Differential Diagnoses: The differential diagnosis associated with the presentation includes Neuropathy Cluster headaches Tension headaches Back pain Admission/Observation Consideration of admission/observation: Escalation of care including admission/observation considered Patient would have been admitted to the hospital had he completed his work up and it had any findings where hospital admission was appropriate, his clinical presentation warranted hospital admission, had myself or any other emergency group fitness department head had the ability to discuss need or lack there of for hospital admission, and the patient hadn't left the department without completing treatment. Lab Data [facility] Lab Attestation statement: I reviewed the patient's lab results. My interpretation of these results are in the MDM Rationale portion of this note. 08/08/24 14:33 08/08/24 15:04 Labs: Lab Results 08/08/24 08/08/24 Range/Units 14:33 15:04 WBC 7.7 (4.8-10.8) X10*3/uL RBC 5.17 (4.60-5.80) X10*6/uL Hgb 15.5 (14.0-18.0) g/dl Hct 45.8 (42.0-52.0) % MCV 88.6 (80.0-98.0) fL MCH 30.0 (27.0-33.0) pg MCHC 33.8 (31.0-36.0) g/dl RDW 13.6 (11.0-16.0) % Plt Count 182 (160-400) X10*3/uL MPV 9.8 (9.4-12.4) fL Immature Gran % (Auto) 0.1 (0.0-0.4) % Neut % (Auto) 48.3 (45-73) % Lymph % (Auto) 37.4 (20-40) % [place] % (Auto) 8.2 (2-11) % Eos % (Auto) 4.8 H (0-4) % Baso % (Auto) 1.2 (0-2) % Lymph # (Auto) 2.9 (1.2-4.9) X10*3/uL [place] # (Auto) 0.6 (0.1-1.2) X10*3/uL Eos # (Auto) 0.4 (0.0-0.4) X10*3/uL Baso # (Auto) 0.1 (0.0-0.2) X10*3/uL Abs Immat Gran (auto) 0.01 (0.00-0.03) X10*3/uL Absolute Neuts (auto) 3.7 (2.0-8.3) x10*3/uL Absolute Nucleated RBC 0.000 (0.0-0.012) X10*3/uL Nucleated RBC % (auto) 0.0 (0.0-0.2) /100WBC Sodium 142 (135-145) mmol/L Potassium 4.5 (3.3-5.1) mmol/L Chloride 105 (96-108) mmol/L Carbon Dioxide 30 H (22-29) mmol/L Anion Gap 12 (12-20) BUN 10 (9-16) mg/dL Creatinine 1.19 (0.5-1.4) mg/dL Estim Creat Clear Calc 67.1 Estimated GFR > 60 Random Glucose 118 H (60-115) mg/dL Calcium 10.0 (8.4-10.2) mg/dL Magnesium 2.2 (1.6-2.6) mg/dL Total Bilirubin 0.4 (0.0-1.0) mg/dL AST 15 (5-37) U/L ALT 16 (0-40) U/L Alkaline Phosphatase 65 (39-117) U/L Total Protein 7.4 (6.5-8.0) g/dL Albumin 4.4 (3.5-5.0) g/dL Discharge Plan Discharge Clinical Impression: Headache disorder, Back pain, Abdominal pain, Paresthesia Patient Disposition: Left W/O Completing Treatment Prescriptions: No Action polyethylene glycol 3350 [Miralax] 17 gram/dose powder 17 g PO DAILY Qty: 510 2RF dicyclomine 20 mg tablet 20 mg PO QID 30 Days Qty: 120 0RF simethicone 125 mg capsule 250 mg PO .T.i.d. PRN (Reason: abdominal distention) Qty: 20 0RF zolpidem 10 mg tablet 10 mg PO BEDTIME PRN clonazepam 1 mg tablet 1 mg PO BID nicotine 14 mg/24 hr patch 24 hour 1 patch topical DAILY escitalopram oxalate 20 mg tablet 20 mg PO QAM Descovy 200-25 mg tablet 1 tab PO DAILY albuterol sulfate [ProAir HFA] 90 mcg/actuation HFA aerosol inhaler 2 puff inhalation Q4H PRN (DME) blood pressure test kit-large Kit See Rx Instructions .ROUTE .MEDSUPPLY Qty: 1 Rx Instructions: As directed sennosides [Natural Senna Laxative] 8.6 mg tablet 8.6 mg PO BEDTIME Qty: 90 3RF Discharge Date/Time: 08/08/24 20:35
[2024-08-08 14:06] VITALS: BP 122/67; PULSE 53; RESP 16; TEMP 36.6; O2SAT 98; BMI 26.2
[2024-08-08 14:36] LABS: MANUAL DIFF FLAG NO
[2024-08-08 14:38] LABS: Basophils Absolute Auto 0.1 X10*3/uL (0.0-0.2); Basophils Percent Auto 1.2 % (0-2); Eosinophils Absolute Auto 0.4 X10*3/uL (0.0-0.4); Eosinophils Percent Auto 4.8 % (0-4); Hematocrit 45.8 % (42.0-52.0); Hemoglobin 15.5 g/dl (14.0-18.0); Imm Gran Abs Auto 0.01 X10*3/uL (0.00-0.03); Imm Gran Pct Auto 0.1 % (0.0-0.4); Lymphocytes Absolute Auto 2.9 X10*3/uL (1.2-4.9); Lymphocytes Percent Auto 37.4 % (20-40); Mean Corpuscular HGB Conc 33.8 g/dl (31.0-36.0); Mean Corpuscular Volume 88.6 fL (80.0-98.0); Mean Platelet Volume 9.8 fL (9.4-12.4); Monocytes Absolute Auto 0.6 X10*3/uL (0.1-1.2); Monocytes Percent Auto 8.2 % (2-11); Neutrophils Absolute Auto 3.7 x10*3/uL (2.0-8.3); Neutrophils Percent Auto 48.3 % (45-73); Platelet Count 182 X10*3/uL (160-400); Red Blood Count 5.17 X10*6/uL (4.60-5.80); Red Cell Distribution Width 13.6 % (11.0-16.0); White Blood Count 7.7 X10*3/uL (4.8-10.8)
[2024-08-08 15:28] LABS: Alanine Aminotransferase 16 U/L (0-40); Albumin Level 4.4 g/dL (3.5-5.0); Alkaline Phosphatase 65 U/L (39-117); Anion Gap 12 (12-20); Aspartate Amino Transferase 15 U/L (5-37); Bilirubin Total 0.4 mg/dL (0.0-1.0); Blood Urea Nitrogen 10 mg/dL (9-16); Carbon Dioxide 30 mmol/L (22-29); Chloride 105 mmol/L (96-108); Creatinine Clr Calc Pharmacy 67.1; Estimated Glomerular Filt Rate > 60; Glucose Random 118 mg/dL (60-115); Magnesium 2.2 mg/dL (1.6-2.6); Potassium 4.5 mmol/L (3.3-5.1); Sodium 142 mmol/L (135-145); Total Protein 7.4 g/dL (6.5-8.0)
[2024-08-08 17:49] VITALS: BP 143/82; PULSE 61; RESP 16; TEMP 36.6; O2SAT 98
--- NOTE | 2024-08-08 17:58 | PC.NURSE ---
Pt comes to ED today with c/o pain to R side of head 04/10. States pain began about 3 weeks ago, went away for 1 week, then started again. Pt also c/o pain to the middle back area that he describes as his lung that started today. Pt gives background information re: ongoing care in relation to his R great toe and decreased sensation. He is concerned that he has too many areas of pain and wishes to find the reasoning. VSS, A&Ox3, afebrile.
[2024-08-08 19:51] VITALS: BP 119/71; PULSE 65; RESP 18; TEMP 36.6; O2SAT 98
--- NOTE | 2024-08-08 19:51 | MHC.EDTECH ---
This tech took over care of patient at 1900,hourly rounds and vitals completed,call jolly in reach
--- NOTE | 2024-08-08 20:34 | PC.NURSE ---
pt leaving due to wait times; encouraged pt to stay, however he said he can no longer wait as he has been here approx 8hrs.
== END 2024-08-08 20:35 | disposition left against medical advice (07) ==
PROVIDERS: Physician Assistant Medical; Emergency Provider Emergency Medicine; PCP Student in an Organized Health Care Education/Training Program
DX: R51.9 Headache, unspecified (principal); M54.9 Dorsalgia, unspecified; R10.9 Unspecified abdominal pain; R20.2 Paresthesia of skin; B20 Human immunodeficiency virus [HIV] disease; F17.200 Nicotine dependence, unspecified, uncomplicated; Z79.899 Other long term (current) drug therapy
CPT/HCPCS: 36415; 80053; 83735; 85025; 99283; 99284

== ENCOUNTER 2024-10-20 12:39 | Outpatient (REF) | payer MEDICAID, SELFPAY ==
[2024-10-20 14:20] LABS: MANUAL DIFF FLAG NO
[2024-10-20 14:22] LABS: Appearance Urine Clear; Color Urine Yellow; Glucose Urine UA Negative (Negative); Leukocyte Esterase Urine Negative (Negative); Nitrite Urine Negative (Negative); PH 7.5 (5.0-9.0); Specific Gravity - Urine 1.015 (1.005-1.025); UMIC TRIGGER UACC YES; Urine Blood Trace (Negative); Urine Ketones Negative (Negative); Urine Protein Negative (Neg-Trace)
[2024-10-20 14:27] LABS: Bacteria Urine None Seen (None Seen); Hyaline Casts Urine 0-2 /LPF (0-2); Squamous Epithelial Cell Urine 0-2 /HPF (0-2); WBC Urine 0-5 /HPF (0-5)
[2024-10-20 14:41] LABS: Basophils Absolute Auto 0.1 X10*3/uL (0.0-0.2); Basophils Percent Auto 0.5 % (0-2); Eosinophils Absolute Auto 0.3 X10*3/uL (0.0-0.4); Eosinophils Percent Auto 3.4 % (0-4); Hemoglobin 15.1 g/dl (14.0-18.0); Imm Gran Abs Auto 0.02 X10*3/uL (0.00-0.03); Imm Gran Pct Auto 0.2 % (0.0-0.4); Lymphocytes Absolute Auto 3.1 X10*3/uL (1.2-4.9); Lymphocytes Percent Auto 31.4 % (20-40); Mean Corpuscular HGB Conc 33.6 g/dl (31.0-36.0); Mean Corpuscular Hemoglobin 29.4 pg (27.0-33.0); Mean Corpuscular Volume 87.5 fL (80.0-98.0); Mean Platelet Volume 10.4 fL (9.4-12.4); Monocytes Absolute Auto 0.8 X10*3/uL (0.1-1.2); Monocytes Percent Auto 7.7 % (2-11); Neutrophils Absolute Auto 5.6 x10*3/uL (2.0-8.3); Neutrophils Percent Auto 56.8 % (45-73); Platelet Count 177 X10*3/uL (160-400); Red Blood Count 5.14 X10*6/uL (4.60-5.80); White Blood Count 9.9 X10*3/uL (4.8-10.8)
[2024-10-20 16:44] LABS: Alanine Aminotransferase 20 U/L (0-40); Albumin Level 4.5 g/dL (3.5-5.0); Anion Gap 12 (12-20); Aspartate Amino Transferase 25 U/L (5-37); Bilirubin Total 0.5 mg/dL (0.0-1.0); Blood Urea Nitrogen 15 mg/dL (9-16); Calcium 9.6 mg/dL (8.4-10.2); Carbon Dioxide 26 mmol/L (22-29); Chloride 105 mmol/L (96-108); Cholesterol 162 mg/dL (<200); Estimated Glomerular Filt Rate > 60; Glucose Random 93 mg/dL (60-115); HDL Cholesterol 42 mg/dL (>40); LDL Cholesterol Calculated 107 mg/dL (<100); Potassium 4.1 mmol/L (3.3-5.1); Sodium 139 mmol/L (135-145); Total Protein 7.4 g/dL (6.5-8.0); Triglycerides 69 mg/dL (<150)
[2024-10-20 17:27] LABS: Alkaline Phosphatase 62 U/L (39-117)
[2024-10-20 18:55] LABS: CT PCR NOT DETECTED (Not Detect.); NG PCR NOT DETECTED (Not Detect.)
[2024-10-20 19:09] LABS: Reflex LDLD? No
[2024-10-21 03:38] LABS: Syphilis Screen Nonreactive (Nonreactive)
[2024-10-21 03:51] LABS: HBS Num1 2.87 mIU/mL (0-7.99); HBc Num1 6.08 S/CO (0.00-0.79); HBsAGNum1 0.46 S/CO (0.00-0.99); Hepatitis B Surface Antigen Negative (Negative); ~Hepatitis B Surface Antibody NONREACTIVE (Nonreactive); ~Hepatitis C Antibody Reactive (Nonreactive)
[2024-10-21 04:12] LABS: Hepatitis A Antibody IgG REACTIVE (Nonreactive); ~Hepatitis A Antibody IgG 1.24 S/CO (0.00-0.99)
[2024-10-21 04:56] LABS: HBc Num3 6.07 S/CO; Hepatitis B Core Antibody Reactive (Nonreactive)
[2024-10-21 19:33] LABS: HIV RNA PCR Qn Copies 150 copies/mL (NOT DETECTED); HIV RNA PCR Qn Log Copies 2.18 (NOT DETECTED)
[2024-10-22 14:28] LABS: HCV Log PCR <1.18 NOT DETECTED Log IU/mL (NOT DETECTED); HepC Viral Load <15 NOT DETECTED IU/mL (NOT DETECTED)
[2024-10-23 00:13] LABS: Hepatitis B Core Antibody IgM NON-REACTIVE (NON-REACTIVE)
[2024-10-23 08:28] LABS: TS Negative Control Passed; TS Panel A 0; TS Panel B 0; TS Positive Control Passed; TSpotTB Negative (Negative)
[2024-10-23 19:07] LABS: Absolute CD3 Count 2735 cells/uL (840-3060); Absolute CD4 Count 931 cells/uL (490-1740); Absolute CD8 Count 1844 cells/uL (180-1170); Absolute Lymphocytes 3322 cells/uL (850-3900); CD4 CD8 Ratio 0.51 (0.86-5.00); Percent CD3 Cells 82 % (57-85); Percent CD4 Cells 28 % (30-61); Percent CD8 Cells 56 % (12-42)
== END 2024-10-20 12:40 | disposition home or self-care (01) ==
LOC: HO.CHCLDS 12:39
PROVIDERS: Visit Provider Internal Medicine
DX: B20 Human immunodeficiency virus [HIV] disease (principal)
CPT/HCPCS: 36415; 80053; 80061; 81001; 85025; 86359; 86360; 86481; 86704; 86705; 86706; 86708; 86780; 86803; 87340; 87491; 87522; 87536; 87591

== ENCOUNTER 2024-11-10 12:09 | Outpatient (REF) | payer MEDICAID, SELFPAY ==
[2024-11-10 13:42] LABS: Folate 14.4 ng/mL (> or = 4.0); Vitamin B12 729 pg/mL (200-900)
[2024-11-11 08:01] LABS: Syphilis Screen Nonreactive (Nonreactive)
[2024-11-11 18:18] LABS: Lyme Abs Screen <0.90 index
[2024-11-12 18:03] LABS: IgA 434 mg/dL (47-310); IgG 1183 mg/dL (600-1640); IgM 58 mg/dL (50-300)
== END 2024-11-10 12:10 | disposition home or self-care (01) ==
LOC: HO.LAB 12:09
PROVIDERS: PCP Student in an Organized Health Care Education/Training Program; Visit Provider Psychiatry & Neurology Neurology
DX: G62.9 Polyneuropathy, unspecified (principal)
CPT/HCPCS: 36415; 82607; 82746; 82784; 86334; 86617; 86618; 86780

== ENCOUNTER 2024-11-16 09:02 | Outpatient (REF) | payer MEDICAID, SELFPAY ==
--- NOTE | ~2024-11-16 | XR_ITS ---
EXAMINATION: XR SHOULDER, RIGHT CLINICAL INFORMATION: Pain in unspecified shoulder M25.519. COMPARISON: XR Right shoulder 06/28/2023 TECHNIQUE: 3 views of the right shoulder including axillary view FINDINGS: Minimal joint: Severe osteoarthritis with marked joint space narrowing marginal osteophytes subchondral cystic change and prominent posterior subluxation seen on the axillary projection. Acromioclavicular joint normal. XR/XR shoulder RT min 2V IMPRESSION: Severe osteoarthritis of the right shoulder. No change compared with prior Electronically signed by: Bernardo Gaitan MD 11/22/2024 09:37 AM EST
== END 2024-11-16 09:03 | disposition home or self-care (01) ==
LOC: HO.HOSX 09:02
PROVIDERS: Visit Provider Physician Assistant
DX: M25.511 Pain in right shoulder (principal); M19.011 Primary osteoarthritis, right shoulder
CPT/HCPCS: 73030; 99212

== ENCOUNTER 2024-11-16 13:11 | Outpatient (AMB) | payer MEDICAID, SELFPAY ==
--- NOTE | 2024-11-16 13:17 | A.OFFVIS_ITS ---
Vital Signs 11/16/24 13:28 Height 5 ft 7 in Weight 175 lb BMI 27.4 Handedness Right Intake Visit Reasons: OV- Right shoulder pain Intake Note: Bob is a 53 year old right hand dominant male who presents to the office today for Right shoulder OA. Pt was seen with Clare on 06/28/23 for the same concern. Patient was referred to PT but states he never got the phone call. Patient states his ROM is still limited. He has tried and failed lidocaine patches with mild relief. Hospitality House Supervisor Services: Hospitality House Supervisor Present (Darryl([phone])) Allergies azithromycin Allergy (Unknown, Verified 11/16/24 13:27) Unknown morphine [MORPHINE] Allergy (Unknown, Verified 11/16/24 13:27) DIFFICULTY BREATHING HPI HPI OV- Right shoulder pain: Details: 53-year-old wwhtc-uzky-ejkwnqub male who presents in the office today for a follow-up of right shoulder pain. I last saw the patient in the office on 06/28/24, when he was referred for a cortisone injection under ultrasound guidance. We also discussed having a right total shoulder arthroplasty in the future. He was also referred to formal physical therapy to work on ROM and strengthening of the right shoulder. While in the office today, the patient reports right shoulder pain and limited range of motion. He was referred to physical therapy in his last visit with me; however, the patient states he did not receive any phone call regarding the physical therapy. He has tried and failed lidocaine patches with mild relief. [facility] Medical History HIV (human immunodeficiency virus infection) Surgical History Hx of hernia repair Family History Mother Diabetes HTN (hypertension) Brother Cancer of blood vessel Social History (Updated 11/16/24 @ 13:28 by Jordana Avina) Household Members: Other Alcohol intake: former Patient Tobacco Use Status: Current everyday Tobacco user Cigarettes Per Day: 10 Current occupational status: disabled Current occupation: right hand dominant Review of Systems Const All systems reviewed & are unremarkable except as noted in HPI and below Physical Exam Vital Signs: BMI result Body Mass Index 27.4 Const General: cooperative, healthy appearing and no acute distress Orientation/consciousness: patient oriented x3 Resp Effort & Inspection: normal respiratory effort and able to speak in complete sentences Cardio Rate: regular rate Peripheral pulses: Peripheral pulses 2+ throughout GI Palpation (GI): Soft to palpation Skin General skin exam: no rashes or lesions noted Lesions: no lesions Rashes: no rashes Neuro General: patient oriented x3 Extrem Other: Right shoulder: Forward flexion and abduction to 80 degrees. Able to reach T12. Pain with cross-body reach. Unable to adequately assess empty can and drop arm due to ROM limitations. NVI. Assessment & Plan Assessment & Plan (1) Osteoarthritis of right glenohumeral joint: Code(s): M19.011 - Primary osteoarthritis, right shoulder Category: Medical Plan Mr. Acosta is a 53-year-old ikuld-wyjv-ehansmpw male who presents in the office today for a follow-up of right shoulder pain. I last saw the patient in the office on 06/28/24, when he was referred for a cortisone injection under ultrasound guidance. We also discussed having a right total shoulder arthroplasty in the future. He was also referred to formal physical therapy to work on ROM and strengthening of the right shoulder. While in the office today, the patient reports right shoulder pain and limited range of motion. He was referred to physical therapy in his last visit with me; however, the patient states he did not receive any phone call regarding the physical therapy. He has tried and failed lidocaine patches with mild relief. We discussed the role of intra-articular cortisone injection, physical therapy and total shoulder arthroplasty. The patient would like to proceed with physical therapy at this time. I educated him that physical therapy may assist with some oriental orthodox of range of motion, but likely not full range of motion due to the arthritic changes noted on the x-rays. He understands and agrees to this. Follow-up will be PRN, or sooner if needed. X-rays of the right shoulder, which were obtained while in the office today and were reviewed by me, Clare Peterson PA-C, revealed: Glenohumeral joint arthritis. Orders: Orders XR shoulder RT min 2V 11/16/24 M25.519 - Pain in unspecified shoulder PT Evaluation and Treatment 11/16/24 M19.011 - Primary osteoarthritis, right shoulder Patient Instructions: Scribed by Caro Huffman, medical technologist clinical, for Clare Peterson PA-C on 11/16/24 at 1:52 pm EST. Coding Level of Care Code Est Pt Level 4 (96564) Diagnoses Osteoarthritis of right glenohumeral joint M19.011
[2024-11-16 13:28] VITALS: BMI 27.4
== END 2024-11-16 13:48 | disposition home or self-care (01) ==
PROVIDERS: PCP Student in an Organized Health Care Education/Training Program; Visit Provider Physician Assistant
DX: M19.011 Primary osteoarthritis, right shoulder (principal)
CPT/HCPCS: 99214

== ENCOUNTER 2025-01-19 15:00 | Outpatient (RCR) | payer MEDICAID, SELFPAY ==
--- NOTE | 2025-02-05 09:35 | MHC.PT.DC ---
[facility] [place] Office [place] Office [place] Office [address] Damir Wilson [address] [phone] F: [phone] F: [phone] F: [phone] F: [phone] Physical Therapy Discharge Report Diagnosis: R shoulder OA Date of Surgery: Date of Evaluation: 12/18/24 Date of Discharge: 02/05/25 Treatments to Date: 9 Cancellations to Date: 0 No Shows to Date: 2 Discharge Status: Improved Function Independent with HEP Discharge Summary: Pt is happy with progress and notes improved flexibility. He demonstrates improved shoulder AROM however not full but functional. At this time, d/c to I HEP/ Electronically signed by: Paris Guerra PT Please sign and return to therapist. Thank you for your referral.
== END 2025-02-05 09:35 | disposition home or self-care (01) ==
LOC: HO.PTCHIC 15:00
PROVIDERS: PCP Student in an Organized Health Care Education/Training Program; Visit Provider Physician Assistant
DX: M19.011 Primary osteoarthritis, right shoulder (principal)
CPT/HCPCS: 97110; 97140; 97162

== ENCOUNTER 2025-06-18 14:21 | Outpatient (REF) | payer MEDICAID, SELFPAY ==
[2025-06-18 15:56] LABS: MANUAL DIFF FLAG NO
[2025-06-18 15:59] LABS: Hematocrit 47.3 % (42.0-52.0); Hemoglobin 15.6 g/dl (14.0-18.0); Imm Gran Abs Auto 0.02 X10*3/uL (0.00-0.03); Imm Gran Pct Auto 0.2 % (0.0-0.4); Lymphocytes Absolute Auto 4.7 X10*3/uL (1.2-4.9); Mean Corpuscular HGB Conc 33.0 g/dl (31.0-36.0); Mean Corpuscular Hemoglobin 29.2 pg (27.0-33.0); Mean Corpuscular Volume 88.6 fL (80.0-98.0); NRBC Abs Auto 0.000 X10*3/uL (0.0-0.012); NRBC Pct Auto 0.0 /100WBC (0.0-0.2); Platelet Count 182 X10*3/uL (160-400); Red Blood Count 5.34 X10*6/uL (4.60-5.80); White Blood Count 8.3 X10*3/uL (4.8-10.8)
[2025-06-18 16:08] LABS: Alanine Aminotransferase 24 U/L (0-40); Albumin Level 4.5 g/dL (3.5-5.0); Alkaline Phosphatase 70 U/L (39-117); Anion Gap 9 (12-20); Aspartate Amino Transferase 23 U/L (5-37); Blood Urea Nitrogen 15 mg/dL (9-16); Calcium 8.8 mg/dL (8.4-10.2); Carbon Dioxide 29 mmol/L (22-29); Chloride 108 mmol/L (96-108); Estimated Glomerular Filt Rate > 60; Potassium 4.0 mmol/L (3.3-5.1); Sodium 142 mmol/L (135-145); Total Protein 7.4 g/dL (6.5-8.0)
[2025-06-21 12:44] LABS: HIV RNA PCR Qn Copies 373 copies/mL (NOT DETECTED); HIV RNA PCR Qn Log Copies 2.57 (NOT DETECTED)
[2025-06-21 14:09] LABS: Rubeola IgG (Measles) 25.50 AU/mL
[2025-06-23 23:07] LABS: Absolute CD3 Count 3757 cells/uL (840-3060); Absolute CD8 Count 2656 cells/uL (180-1170); Percent CD3 Cells 79 % (57-85); Percent CD8 Cells 56 % (12-42)
== END 2025-06-18 14:22 | disposition home or self-care (01) ==
LOC: HO.HHCL 14:21
PROVIDERS: PCP Student in an Organized Health Care Education/Training Program; Visit Provider Internal Medicine
DX: Z21 Asymptomatic human immunodeficiency virus [HIV] infection status (principal)
CPT/HCPCS: 36415; 80053; 85025; 86359; 86360; 86735; 86762; 86765; 87536

== ENCOUNTER 2025-07-09 17:36 | Emergency (ER) | payer MEDICAID, SELFPAY ==
--- NOTE | ~2025-07-09 | XR_ITS ---
CLINICAL HISTORY: sob 2 view chest x-ray Comparison: CR/SR - XR CHEST 2 VIEWS - 01/23/24 01:35 EST Findings: Normal size heart. No consolidation, pleural effusion or pneumothorax. No acute fracture. Degenerative changes midthoracic spine. IMPRESSION: 1. No acute findings. This document has been electronically signed by: Saida Nagy MD on 07/09/2025 19:36:00
[2025-07-09 17:55] VITALS: BP 126/73; PULSE 84; RESP 18; TEMP 36.8; O2SAT 94; BMI 26.8
--- NOTE | 2025-07-09 18:04 | ECG_ITS ---
Test Reason : DYSPNEA Blood Pressure : */* mmHG Vent. Rate : 78 BPM Atrial Rate : 78 BPM P-R Int : 146 ms QRS Dur : 76 ms QT Int : 358 ms P-R-T Axes : 54 29 27 degrees QTcB Int : 408 ms Normal sinus rhythm Normal ECG When compared with ECG of 23-Jan-2024 01:40, No significant change was found Referred By: Generic ED Physician Electronically Signed By: TIMOTHY PATEL
--- NOTE | 2025-07-09 18:14 | ED.GENADULT ---
HPI - General Adult General Chief complaint: General Medical Stated complaint: SOB Time Seen by Provider: 07/09/25 23:47 Source: patient Mode of arrival: ambulatory Limitations: no limitations History of Present Illness ED Provider: Dr. Aishwarya Naranjo HPI narrative: Patient comes to the emergency room complaining of URI for 4 days. Patient states that earlier today he went to urgent care, states that they listen to his lungs and they diagnosed him with pneumonia. Patient was suspicious about the diagnosis because it into chest x-ray. Patient came in requesting blood work and x-rays. Patient denies any chest pain, no shortness of breath. Related Data Home Medications ?Medication ?Instructions ?Recorded ?Confirmed albuterol sulfate 90 mcg/actuation 2 puff inhalation Q4H PRN 10/30/22 aerosol inhaler (ProAir HFA) blood pressure test kit-large #1 ea 10/30/22 clonazepam 1 mg tablet 1 mg PO BID 10/30/22 emtricitabine 200 mg-tenofovir 1 tab PO DAILY 10/30/22 alafenamide fumarate 25 mg tablet (Descovy) escitalopram oxalate 20 mg tablet 20 mg PO QAM 10/30/22 nicotine 14 mg/24 hr daily 1 patch topical DAILY 10/30/22 transdermal patch zolpidem 10 mg tablet 10 mg PO BEDTIME PRN 10/30/22 Previous Rx's ?Medication ?Instructions ?Recorded sennosides 8.6 mg tablet (Natural 8.6 mg PO BEDTIME constipation #90 10/30/22 Senna Laxative) tabs polyethylene glycol 3350 17 17 g PO DAILY #510 grams 04/26/23 gram/dose oral powder (Miralax) dicyclomine 20 mg tablet 20 mg PO QID 30 days #120 tabs 01/23/24 simethicone 125 mg capsule 250 mg (2 x 125 mg) PO .T.i.d. PRN 01/23/24 abdominal distention #20 caps albuterol sulfate 90 mcg/actuation 2 puff inhalation Q4-6H PRN 07/10/25 aerosol inhaler (Ventolin HFA) shortness of breath or wheezing #8.5 grams prednisone 50 mg tablet 50 mg PO DAILY #4 tabs 07/10/25 Allergies Allergy/AdvReac Type Severity Reaction Status Date / Time azithromycin Allergy Unknown Unknown Verified 07/09/25 18:02 morphine (MORPHINE) Allergy Unknown DIFFICULTY Verified 07/09/25 18:02 BREATHING Review of Systems Review of Systems: Constitutional : No Weight loss, No Fever, No Chills, No Night Sweats, No Fatigue, No Malaise ENT/Mouth : No Hearing loss, No Ear Pain, No Nasal Congestion, No Sinus Pain, No Hoarseness, No sore throat, No Rhinorrhea, No Swallowing Difficulty Eyes: No Eye Pain, No Swelling, No Redness, No Foreign Body, No Discharge, No Vision Changes Cardiovascular : No Chest Pain, No SOB, No Dyspnea on Exertion, No Orthopnea, No Edema, No Palpitations Respiratory : Complaining of cough, congestion, no shortness of breath Gastrointestinal : No Nausea, No Vomiting, No Diarrhea, No Constipation, No abdominal Pain, No Hematochezia, No Melena Genitourinary : no irregular bleeding, No Dysuria, No Urinary Frequency, No Hematuria, No Urinary Incontinence, No Urgency, No Flank Pain, No Urinary Flow Changes, No Hesitancy Musculoskeletal : No joint pain, No Myalgias, No Joint Swelling Skin : No Skin Lesions, No rash Neuro : No Weakness, No Numbness, No Paresthesias, No Loss of Consciousness, No Dizziness, No Headache Psych : No Anxiety/Panic, No Depression, No SI/HI/AH/VH, No Social Issues, Heme/Lymph: No Bruising, No Bleeding,No Lymphadenopathy Endocrine : No Polyuria, No Polydipsia, No Temperature Intolerance PMFSH Past Medical History Medical History HIV (human immunodeficiency virus infection) Surgical History Hx of hernia repair Family History Family History Mother Diabetes HTN (hypertension) Brother Cancer of blood vessel Social History Social History (Updated 11/16/24 @ 13:28 by Jordana Avina) Household Members: Other Alcohol intake: former Patient Tobacco Use Status: Current everyday Tobacco user Cigarettes Per Day: 10 Smoked in Last 30 Days: Yes Use of substances other than those prescribed or required for medical reasons: No Advance Directives: No Advance Directives Information Provided: Yes Current occupational status: disabled Current occupation: right hand dominant Physical Exam ED Exam Exam: Appearance: Alert. Oriented X3. No acute distress. Eyes: Pupils equal, round and reactive to light. ENT: Pharynx normal. Neck: Normal inspection. Neck supple. No lymph nodes noted. No crepitus CVS: Normal heart rate and rhythm. Pulses normal. Normal S1 and S2 Respiratory: No respiratory distress. Mild bilateral wheezing very occasional, no rales or crackles Abdomen: Soft and nontender. No rigidity. No distention. Skin: Skin warm and dry. Normal skin color. Normal skin turgor. Extremities: No lower extremity edema. No Lacerations. No Rash Neuro: Oriented X 3. No motor deficit. No sensory deficit. Moving all extremities. No slurred speech. CN 2 through 12 grossly intact Psych: calm, cooperative, normal affect Vital Signs: Vital Signs - 24 hr 07/09/25 17:55 07/09/25 23:25 Temperature 98.3 F 98.7 F Pulse Rate 84 64 Respiratory Rate 18 16 Blood Pressure 126/73 123/90 H Pulse Oximetry 94 97 Oxygen Delivery Method Room Air Room Air BMI result Body Mass Index 26.8 Course Course Course Narrative: RME performed by Yamileth Stratton PA-C. Patient is a 54 year old assigned male at presenting to the emergency department with not feeling well over the last 4 days. Patient states that over the last 4 days he has felt generally unwell with a cough and went to a walk in where they gave him antibiotics. Detailed physical exam and review of systems are deferred to the home therapy clinician. Labs and imaging ordered. Patient placed back in the waiting room pending room availability and results. Medical Decision Making Medical Decision Making [facility] Narrative: My interpretation of labs: No significant abnormality in patient's hematology chemistry, normal LFTs, serology negative for influenza RSV or COVID Chest x-ray does not show any acute abnormalities. Patient is a bit wheezy. Patient was given p.o. prednisone and albuterol I discussed with the patient to continue taking the antibiotics as prescribed. Patient has not been diagnosed with COPD. However, patient admits that he is a heavy smoker. Patient continues trying to stop smoking. Also, patient reports occasional subjective fevers. Patient also known to have HIV. Given all this information, I discussed with the patient that I would do best to continue the antibiotics heme and though the x-ray does not show acute pneumonia. Patient agrees with plan. Differential Diagnosis Differential Diagnoses: The differential diagnosis associated with the presentation includes (Undiagnosed chronic lung disease, asthma, viral URI) Admission/Observation Consideration of admission/observation: Escalation of care including admission/observation considered Lab Data MDM Lab Attestation statement: I reviewed the patient's lab results. 07/09/25 18:10 07/09/25 18:10 Labs: Lab Results 07/09/25 Range/Units 18:10 WBC 9.6 (4.8-10.8) X10*3/uL RBC 5.45 (4.60-5.80) X10*6/uL Hgb 16.1 (14.0-18.0) g/dl Hct 46.2 (42.0-52.0) % MCV 84.8 (80.0-98.0) fL MCH 29.5 (27.0-33.0) pg MCHC 34.8 (31.0-36.0) g/dl RDW 13.2 (11.0-16.0) % Plt Count 181 (160-400) X10*3/uL MPV 9.8 (9.4-12.4) fL Immature Gran % (Auto) 0.2 (0.0-0.4) % Neut % (Auto) 50.3 (45-73) % Lymph % (Auto) 35.2 (20-40) % Power % (Auto) 10.6 (2-11) % Eos % (Auto) 3.0 (0-4) % Baso % (Auto) 0.7 (0-2) % Lymph # (Auto) 3.4 (1.2-4.9) X10*3/uL Power # (Auto) 1.0 (0.1-1.2) X10*3/uL Eos # (Auto) 0.3 (0.0-0.4) X10*3/uL Baso # (Auto) 0.1 (0.0-0.2) X10*3/uL Abs Immat Gran (auto) 0.02 (0.00-0.03) X10*3/uL Absolute Neuts (auto) 4.8 (2.0-8.3) x10*3/uL Absolute Nucleated RBC 0.000 (0.0-0.012) X10*3/uL Nucleated RBC % (auto) 0.0 (0.0-0.2) /100WBC Sodium 140 (135-145) mmol/L Potassium 4.0 (3.3-5.1) mmol/L Chloride 102 (96-108) mmol/L Carbon Dioxide 28 (22-29) mmol/L Anion Gap 14 (12-20) BUN 14 (9-16) mg/dL Creatinine 1.09 (0.5-1.4) mg/dL Estim Creat Clear Calc 72.4 Estimated GFR > 60 Random Glucose 80 (60-115) mg/dL Calcium 9.9 D (8.4-10.2) mg/dL Total Bilirubin 0.5 (0.0-1.0) mg/dL AST 22 (5-37) U/L ALT 19 (0-40) U/L Alkaline Phosphatase 68 (39-117) U/L Total Protein 8.6 H (6.5-8.0) g/dL Albumin 4.9 (3.5-5.0) g/dL Influenza Type A (PCR) NEGATIVE (Negative) Influenza Type B (PCR) NEGATIVE (Negative) RSV RNA Qual (PCR) NEGATIVE (Negative) SARS-CoV-2 RNA (RT-PCR) NEGATIVE (Negative) Independent Interpretation I performed an independent interpretation of an: Plain X-Ray Radiology Impression Discussion of test interpretation with radiology: I have reviewed the radiologist's reading. Radiologist Impression: Normal size heart. No consolidation, pleural effusion or pneumothorax. No acute fracture. Degenerative changes midthoracic spine. Critical Care Time Critical Care Time Critical Care Time: Yes Total Critical Care Time: 35 Attestation: I have personally provided critical care time. Time includes review of lab data, radiology results, discussion with consultants, and monitoring for potential decompensation. Intervention performed as documented. Discharge Plan Discharge Clinical Impression: URI, acute, Wheezing Patient Disposition: Home, Self-Care Instructions: Upper Respiratory Infection (DC), Wheezing (ED) Additional Instructions: Continue taking your antibiotics as prescribed and also take prednisone. Please stop smoking. Please follow-up with your primary care physician tomorrow. If you have any worsening or new symptoms, please return to the emergency room or call 911 Prescriptions: New prednisone 50 mg tablet 50 mg PO DAILY Qty: 4 0RF albuterol sulfate [Ventolin HFA] 90 mcg/actuation HFA aerosol inhaler 2 puff inhalation Q4-6H PRN (Reason: shortness of breath or wheezing) Qty: 8.5 0RF No Action polyethylene glycol 3350 [Miralax] 17 gram/dose powder 17 g PO DAILY Qty: 510 2RF dicyclomine 20 mg tablet 20 mg PO QID 30 Days Qty: 120 0RF simethicone 125 mg capsule 250 mg PO .T.i.d. PRN (Reason: abdominal distention) Qty: 20 0RF zolpidem 10 mg tablet 10 mg PO BEDTIME PRN clonazepam 1 mg tablet 1 mg PO BID nicotine 14 mg/24 hr patch 24 hour 1 patch topical DAILY escitalopram oxalate 20 mg tablet 20 mg PO QAM Descovy 200-25 mg tablet 1 tab PO DAILY albuterol sulfate [ProAir HFA] 90 mcg/actuation HFA aerosol inhaler 2 puff inhalation Q4H PRN (DME) blood pressure test kit-large Kit See Rx Instructions .ROUTE .MEDSUPPLY Qty: 1 Rx Instructions: As directed sennosides [Natural Senna Laxative] 8.6 mg tablet 8.6 mg PO BEDTIME Qty: 90 3RF Print Language: [place]
[2025-07-09 18:15] LABS: MANUAL DIFF FLAG NO
[2025-07-09 18:19] LABS: Hematocrit 46.2 % (42.0-52.0); Hemoglobin 16.1 g/dl (14.0-18.0); Imm Gran Abs Auto 0.02 X10*3/uL (0.00-0.03); Imm Gran Pct Auto 0.2 % (0.0-0.4); Lymphocytes Absolute Auto 3.4 X10*3/uL (1.2-4.9); Mean Corpuscular HGB Conc 34.8 g/dl (31.0-36.0); Mean Corpuscular Hemoglobin 29.5 pg (27.0-33.0); Mean Corpuscular Volume 84.8 fL (80.0-98.0); NRBC Abs Auto 0.000 X10*3/uL (0.0-0.012); NRBC Pct Auto 0.0 /100WBC (0.0-0.2); Platelet Count 181 X10*3/uL (160-400); Red Blood Count 5.45 X10*6/uL (4.60-5.80); White Blood Count 9.6 X10*3/uL (4.8-10.8)
[2025-07-09 18:34] LABS: Alanine Aminotransferase 19 U/L (0-40); Albumin Level 4.9 g/dL (3.5-5.0); Alkaline Phosphatase 68 U/L (39-117); Anion Gap 14 (12-20); Aspartate Amino Transferase 22 U/L (5-37); Blood Urea Nitrogen 14 mg/dL (9-16); Calcium 9.9 mg/dL (8.4-10.2); Carbon Dioxide 28 mmol/L (22-29); Chloride 102 mmol/L (96-108); Creatinine Clr Calc Pharmacy 72.4; Estimated Glomerular Filt Rate > 60; Potassium 4.0 mmol/L (3.3-5.1); Sodium 140 mmol/L (135-145); Total Protein 8.6 g/dL (6.5-8.0)
[2025-07-09 18:52] LABS: Resp Syncy Virus RNA Qual PCR NEGATIVE (Negative); SARS COV2 PCR INHOUSE NEGATIVE (Negative)
[2025-07-09 23:25] VITALS: BP 123/90; PULSE 64; RESP 16; TEMP 37.1; O2SAT 97
[2025-07-10 00:24] VITALS: BP 127/84; PULSE 95; RESP 20; TEMP 37; O2SAT 97
[2025-07-10] MEDS: Albuterol Sulfate 90 MCG 8 GM INHALER 2 PUFF INHALE (00:45)
[2025-07-10 00:49] VITALS: BP 127/84; PULSE 95; RESP 20; TEMP 37; O2SAT 97
== END 2025-07-10 00:58 | disposition home or self-care (01) ==
PROVIDERS: Emergency Provider Emergency Medicine
DX: J06.9 Acute upper respiratory infection, unspecified (principal); R06.2 Wheezing; R06.00 Dyspnea, unspecified; R06.02 Shortness of breath
CPT/HCPCS: 71046; 80053; 85025; 87637; 93005; 99284

== ENCOUNTER → 2025-07-09 18:04 | Outpatient (BNV) | payer MEDICAID, SELFPAY | PROVIDERS: Emergency Provider Emergency Medicine; Visit Provider Internal Medicine | DX: R06.00 Dyspnea, unspecified (principal) | CPT/HCPCS: 93010 ==

== ENCOUNTER → 2025-07-09 18:04 | Outpatient (BNV) | payer MEDICAID, SELFPAY | PROVIDERS: Visit Provider Specialist | DX: R06.02 Shortness of breath (principal) | CPT/HCPCS: 71046 ==

== ENCOUNTER 2025-10-14 16:29 | Outpatient (REF) | payer MEDICAID, SELFPAY | END 2025-10-14 16:30 | disposition home or self-care (01) | LOC: HO.HHCLNP 16:29 | PROVIDERS: Visit Provider Internal Medicine | DX: Z21 Asymptomatic human immunodeficiency virus [HIV] infection status (principal) | CPT/HCPCS: 88112 ==